=== PATIENT | female | born 1990 ===

== ENCOUNTER 2016-09-16 23:16 | Emergency (ER) | payer OTHER ==
[2016-09-16 23:27] VITALS: BP 138/64; PULSE 84; RESP 16; TEMP 99.1; O2SAT 97
[2016-09-17] MEDS ORDERED: Sodium Chloride 0.9% 1,000 ML IV STA (00:25)
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
[2016-09-17 02:22] LABS: MEAN CELL VOLUME 90.4 fl (81.0-99.0); MEAN CORPUSCULAR HEMOGLOBIN 30.2 pg (27.0-31.0); MEAN CORPUSCULAR HGB CONC 33.4 g/dL (33.0-37.0); RBC 4.64 Mil/uL (3.80-5.20); RED CELL DISTRIBUTION WIDTH 13.6 % (11.5-14.5); WHITE BLOOD COUNT 8.8 K/uL (4.8-10.8)
[2016-09-17 02:42] LABS: ALB/GLOB RATIO 1.4 (1.0-2.1); ALBUMIN 4.5 g/dL (3.5-5.0); ALT/SGPT 36 U/L (9-52); AST/SGOT 27 U/L (14-36); BLOOD UREA NITROGEN 10 mg/dl (7-17); CALCIUM 9.7 mg/dL (8.4-10.2); GFR AFRICAN-AMERICAN > 60; GFR NON-AFRICAN AMERICAN > 60
== END 2016-09-17 03:25 | disposition home or self-care (01) ==
LOC: H.ER 23:16
DX: T20.10XA Burn of first degree of head, face, and neck, unspecified site, initial encounter (principal); X19.XXXA Contact with other heat and hot substances, initial encounter; Y92.89 Other specified places as the place of occurrence of the external cause

== ENCOUNTER 2016-12-06 11:02 | Emergency (ER) | payer OTHER ==
[2016-12-06 11:40] VITALS: BP 118/62; PULSE 83; RESP 16; TEMP 97.1; O2SAT 100
--- NOTE | 2016-12-06 12:35 | ED PDOC ---
HPI: Abdomen Time Seen by Provider: 12/06/16 11:57 Chief Complaint (Nursing): Abdominal Pain Chief Complaint (Provider): Abdominal Pain History Per: Patient Additional Complaint(s): Pt is a 26 yo female, currently 16 wks, reports she was sent to ed for EKG by FINANCIAL BUSINESS ANALYST. Pt states she has been feeling chest tightness/abdominal tightness and headache x1 week. pt in second trimester of . Pt reports symptoms come and go, last ~ 3 hours when present. Currently pt asymptomatic. Dr. Grace Past Medical History Reviewed: Nursing Documentation, Vital Signs Vital Signs: Last Vital Signs Temp 97.1 F L 12/06/16 11:32 Pulse 83 12/06/16 11:32 Resp 16 12/06/16 11:32 BP 118/62 12/06/16 11:32 Pulse Ox 100 12/06/16 12:38 - Medical History PMH: Back Problems, Bronchitis Denies: Chronic Kidney Disease - Surgical History Surgical History: (x1) - Family History Family History: States: No Known Family Hx - Living Arrangements Living Arrangements: With Family - Social History Current smoker - smoking cessation education provided: No Alcohol: None Drugs: Denies - Immunization History Hx Tetanus Toxoid Vaccination: No Hx Influenza Vaccination: No Hx Pneumococcal Vaccination: No - Allergies Allergies/Adverse Reactions: Allergies Allergy/AdvReac Type Severity Reaction Status Date / Time peanuts Allergy Mild RASH Uncoded 09/16/16 23:25 Review of Systems ROS Statement: Except As Marked, All Systems Reviewed And Found Negative Cardiovascular: Positive for: Chest Pain Gastrointestinal: Positive for: Abdominal Pain Physical Exam - Reviewed Nursing Documentation Reviewed: Yes Vital Signs Reviewed: Yes - Physical Exam Appears: Positive for: Well, Non-toxic, No Acute Distress Head Exam: Positive for: ATRAUMATIC, NORMAL INSPECTION, NORMOCEPHALIC Skin: Positive for: Normal Color, Warm, DRY Eye Exam: Positive for: EOMI, Normal appearance, PERRL ENT: Positive for: Normal ENT Inspection Neck: Positive for: Normal, Painless ROM Cardiovascular/Chest: Positive for: Regular Rate, Rhythm Respiratory: Positive for: CNT, Normal Breath Sounds Gastrointestinal/Abdominal: Positive for: Normal Exam, Bowel Sounds, Soft Back: Positive for: Normal Inspection Extremity: Positive for: Normal ROM Neurologic/Psych: Positive for: Alert, Oriented - Laboratory Results Result Diagrams: 12/06/16 13:35 12/06/16 13:35 - ECG O2 Sat by Pulse Oximetry: 100 Medical Decision Making Medical Decision Making: CBC, COMP and UA resulted WNL US IMPRESSION: A single viable intrauterine gestation identified in transverse lie with an average ultrasonic age of 16 weeks 6 days. No placental abruption or previa grossly appreciated and cervical os appears closed and no discrete myometrial mass identified. Consider follow-up ultrasonography to obtain anatomical survey as clinically warranted. Please see discussion above. Pt educated on all results and demonstrated full understanding Pt doing well on re-eval, no complaints. Repeat exam non focal. Pt advised to follow up with Dr. Grace, reports she will do so tomorrow. Disposition - Clinical Impression Clinical Impression: -related symptom in second trimester - Patient ED Disposition Is Patient to be Admitted: No - Disposition Disposition: Routine/Home Disposition Time: 17:24 Condition: STABLE Instructions: at 15 to 18 Weeks (ED) Forms: [employer] (Albanian), [facility] ED School/Work Excuse
[2016-12-06 13:44] LABS: BASO % 0.3 % (0.0-2.0); EOS % 0.1 % (0.0-4.0); LYMPH # 1.8 K/uL (1.0-4.3); LYMPH % 22.7 % (20.0-40.0); MEAN CELL VOLUME 89.9 fl (81.0-99.0); MEAN CORPUSCULAR HEMOGLOBIN 30.4 pg (27.0-31.0); MEAN CORPUSCULAR HGB CONC 33.8 g/dL (33.0-37.0); MEAN PLATELET VOLUME 7.1 fl (7.2-11.7); MONO # 0.5 K/uL (0.0-0.8); MONO % 6.1 % (0.0-10.0); NEUT # 5.6 K/uL (1.8-7.0); NEUT % 70.8 % (50.0-75.0); RED CELL DISTRIBUTION WIDTH 13.4 % (11.5-14.5); WHITE BLOOD COUNT 7.9 K/uL (4.8-10.8)
[2016-12-06 13:56] LABS: RBC URINE 3 /hpf (0-3); URINE BACTERIA RARE (<OCC); URINE BILIRUBIN NEGATIVE (NEGATIVE); URINE BLOOD NEGATIVE (NEGATIVE); URINE COLOR STRAW (YELLOW); URINE GLUCOSE (UA) NEG (Normal); URINE KETONE NEGATIVE (NEGATIVE); URINE LEUKOCYTE ESTERASE TRACE Leu/uL (Negative); URINE PROTEIN NEGATIVE (NEGATIVE); URINE UROBILINOGEN 0.2-1.0 mg/dL (0.2-1.0)
[2016-12-06 14:00] LABS: ALB/GLOB RATIO 1.2 (1.0-2.1); ALKALINE PHOSPHATASE 51 U/L (38-126); ALT/SGPT 46 U/L (9-52); AST/SGOT 28 U/L (14-36); BLOOD UREA NITROGEN 7 mg/dl (7-17); CALCIUM 8.9 mg/dL (8.4-10.2); CARBON DIOXIDE 27 mmol/L (22-30); CHLORIDE 105 mmol/L (98-107); GFR AFRICAN-AMERICAN > 60; GLUCOSE,RANDOM 90 mg/dL (65-105); SODIUM 141 mmol/l (132-148); TOTAL PROTEIN 6.5 G/DL (6.3-8.2)
[2016-12-06 14:01] LABS: WBC URINE 10 /hpf (0-5)
[2016-12-06 14:03] LABS: BILIRUBIN,TOTAL 0.1 mg/dl (0.2-1.3)
--- NOTE | 2016-12-06 16:23 | US ---
PROCEDURE: OB Pelvic Ultrasound HISTORY: 16 weeks, cramping and and chest pain ; last menstrual period is unknown. COMPARISON: None available. FINDINGS: UTERUS: A single viable intrauterine gestation identified in transverse lie with an average ultrasonic age of 16 weeks 6 days and cardiac activity measuring 148 beats per minute. A posterior fundal placenta appears to be developing. No definite placental abruption or previa. The internal cervical os appears close with the cervical length measuring 5 point 0 cm. No discrete myometrial mass identified. Uterus appears anteverted. The following mean biometry was obtained: Biparietal diameter is 3.6 cm corresponds 17 weeks 1 day. Head circumference 13.1 cm corresponds to 16 weeks 5 days. Abdominal circumference 10.9 cm confined to 16 weeks 6 days. Femur length 2.2 cm corresponds to 18 weeks 3 days. HC/AC ratio 1.20 which falls within normal range. Estimated date of delivery 05/17/2013. anatomical survey is markedly limited in this emergent differential side examination. Consider follow-up obstructed ultrasonography for greater detailed anatomical survey. CERVIX: Long and closed. No cervical abnormality seen. RIGHT OVARY: Not clearly identified. No suspicious right adnexal mass. LEFT OVARY: Not clearly identified. No suspicious left adnexal mass. FREE FLUID: None. OTHER FINDINGS: None. IMPRESSION: A single viable intrauterine gestation identified in transverse lie with an average ultrasonic age of 16 weeks 6 days. No placental abruption or previa grossly appreciated and cervical os appears closed and no discrete myometrial mass identified. Consider follow-up ultrasonography to obtain anatomical survey as clinically warranted. Please see discussion above.
--- NOTE | 2016-12-07 08:29 | CARD ---
APPROVED REPORT EKG Measurement Heart [id number] <Conclusion> Normal sinus rhythm Normal ECG
== END 2016-12-06 17:08 | disposition home or self-care (01) ==
LOC: H.ER 11:02
DX: O26.892 Other specified pregnancy related conditions, second trimester (principal); Z3A.16 16 weeks gestation of pregnancy

== ENCOUNTER 2017-04-12 20:28 | Emergency (ER) | payer OTHER ==
[2017-04-12 21:04] VITALS: BMI 33.8
[2017-04-13 03:38] VITALS: BP 124/76; PULSE 97; RESP 16; TEMP 98.2; O2SAT 99
== END 2017-04-12 22:38 | disposition home or self-care (01) ==
LOC: H.EROB2 20:28
DX: O26.93 Pregnancy related conditions, unspecified, third trimester (principal); R10.2 Pelvic and perineal pain; M54.5 Low back pain; Z3A.34 34 weeks gestation of pregnancy; O47.03 False labor before 37 completed weeks of gestation, third trimester

== ENCOUNTER 2017-05-20 01:30 | Inpatient (IN) | payer OTHER ==
[2017-05-20 02:25] VITALS: BMI 36.6
[2017-05-20 03:33] LABS: BASO % 0.2 % (0.0-2.0); EOS % 0.4 % (0.0-4.0); HEMOGLOBIN 11.4 g/dL (12.0-16.0); LYMPH # 1.9 K/uL (1.0-4.3); LYMPH % 24.2 % (20.0-40.0); MEAN CELL VOLUME 88.9 fl (81.0-99.0); MEAN CORPUSCULAR HEMOGLOBIN 30.7 pg (27.0-31.0); MEAN CORPUSCULAR HGB CONC 34.5 g/dL (33.0-37.0); MEAN PLATELET VOLUME 7.7 fl (7.2-11.7); MONO # 0.5 K/uL (0.0-0.8); MONO % 5.8 % (0.0-10.0); NEUT # 5.5 K/uL (1.8-7.0); NEUT % 69.4 % (50.0-75.0); NRBC % 0.2 % (0.0-0.0); RBC 3.73 Mil/uL (3.80-5.20); RED CELL DISTRIBUTION WIDTH 16.5 % (11.5-14.5); WHITE BLOOD COUNT 7.9 K/uL (4.8-10.8)
[2017-05-20] MEDS: Lactated Ringer's 1,000 ML IV SCH ×4 (05:30→17:44)
[2017-05-20] MEDS ORDERED: Nalbuphine 20 mg/ml Inj (1 ml) IVP PRN (05:53)
[2017-05-20] MEDS ORDERED: cefOXitin 2 GM in Dextrose 5% In Water 100 ML IVPB ONE (07:00)
[2017-05-20] MEDS ORDERED: cefOXitin 2 GM in Sodium Chloride 0.9% 100 ML IVPB ONE (10:00)
[2017-05-20] MEDS ORDERED: Oxytocin 30 units/LR 500ML 30 U/500 ML BAG IV ONE (10:16)
[2017-05-20] MEDS ORDERED: ePHEDrine 50 mg/ml Inj ONE ×2 (10:46→14:44)
[2017-05-20] MEDS ORDERED: Morphine 1 mg/ml preservative-free Inj(Duramorph) ONE ×2 (10:46→14:32)
[2017-05-20] MEDS ORDERED: Phenylephrine 10 mg/ml Inj ONE (10:46)
[2017-05-20] MEDS ORDERED: Midazolam 2 MG/2 ML VIAL ONE (15:26)
[2017-05-20] MEDS ORDERED: DiphenhydrAMINE 50 mg/ml Inj IVP PRN ×2 (15:58→18:20)
--- NOTE | 2017-05-20 15:58 | OBADHP ---
Datetime: 05/20/2017 03:10 Admit Comment, IP Provider: 26 y/o F at 39.4 weeks GA, MARIS 05/23/17, c/o uterine CTX thatn began at 6pm and progressively became frequent, every 5 minutes since 1-2 hours ago. Pt explains expu lsing bloody mucus plug at 8am this morning. NO LOF. FM present. All systems reviewed and negative except as above. NKDA Meds: PNV PN Care: w/ Dr Grace at [facility] OB Hx: G 6 [id number]. 2x sAb. 2x elective TOP. 1x . PMHx: plantar fascitis, Sciatica. PSHx: 1 FHx: Maternal aunt with Mental Retardation. SHx: No tobacco, alcohol or rec drugs. A/P 26 y/o F with IUP at 39.4 weeks GA, with CTX and a scheduled repeat for tomorrow. -Admit to L and D -Initiate protocol. -PCP, Dr Grace, made aware. Case discussed with Dr Riley, OB button sewer GTolentino PGY-1 Pelvic Type - PN: Adequate Extremities - PN: Normal Abdomen - PN: Normal Back - PN: Normal Breast - PN: Normal Lungs - PN: Normal Heart - PN: Normal Thyroid - PN: Normal Neurologic - PN: Normal HEENT - PN: Normal General - PN: Normal Presentation-Admit: Vertex FHR - Baseline A Provider: 135 Gestation - Est Wks by US: 39+ IP Hx Assessment: The History has been Reviewed and is Current Vital Signs Provider: Reviewed; Within Normal Limits IP Chief Complaint: Uterine contractions NICHD Variability Prov Fetus A: Moderate 6-25bpm NICHD Accel Fetus A IP Provider: [id number] FHR Category Provider Fetus A: Category I NICHD Decel Fetus A IP Provider: None Dilatation, Provider: 0 Effacement, Provider: thick Station, Provider: high Genitourinary Exam: Normal DTRs - PN: Normal EGA AdmitDate IP: 39.4 IP Adm Impression: Term, intrauterine IP Admit Plan: Admit to unit; Initiate Section protocol
--- NOTE | 2017-05-20 16:04 | OBDS ---
DELIVERY PERSONNEL Delivery Doctor: Ricco Grace MD Architect Naval: Regla Rose RN Anesthesiologist: Gregg Le MD MATERNAL INFORMATION Delivery Anesthesia: Spinal Medications in Delivery: Pitocin 30 mu/500 mL Estimated Blood Loss (ml): 800ml Maternal Complications: None Provider Comments: delivery of live baby boy 9/9 clear fluid tubes and ovaries wnl LABOR SUMMARY EDC: 05/23/2017 00:00 No. Babies in Womb: 1 Attempted: No Labor Anesthesia: None LABOR INFORMATION Reason for Induction: Not Applicable Oxytocin: N/A Group B Beta Strep: Negative Antibiotics # of Doses: 1 Antibiotics Time of Last Dose: 1430 Steroids Given: None Reason Steroids Not Administered: Not Applicable MEMBRANES Membranes Rupture Method: Artificial Rupture of Membranes: 05/20/2017 15:02 Length of Rupture (hrs): 0.02 Amniotic Fluid Color: Clear Amniotic Fluid Amount: Moderate Amniotic Fluid Odor: None STAGES OF LABOR Stage 3 hrs: 0 Stage 3 min: 1 VAGINAL DELIVERY Episiotomy: None Laceration Extension: N/A Laceration Type: None Laceration Repair: Not Applicable CSECTION DELIVERY Primary Indication: Repeat Elective Secondary Indication: N/A CSection Urgency: Elective CSection Incidence: Repeat Labor: No Labor Elective: Elective CSection Incision: Lower Uterine Transverse BABY A INFORMATION Infant Delivery Date/Time: 05/20/2017 15:03 Method of Delivery: Born in Route : No : N/A Forceps: N/A Vacuum Extraction: N/A Shoulder Dystocia : No SHOULDER DYSTOCIA BABY A Delivery Date/Time: 05/20/2017 15:03 PRESENTATION/POSITION BABY A Presentation: Cephalic Cephalic Presentation: Vertex Breech Presentation: N/A PLACENTA INFORMATION BABY A Placenta Delivery Time : 05/20/2017 15:04 Placenta Method of Delivery: Expressed Placenta Status: Delivered SCORES BABY A Heart Rate 1 min: >100 bpm Resp Effort 1 min: Good Cry Reflex Irritability 1 min: Cough or Sneeze or Pulls Away Muscle Tone 1 min: Active Motion Color 1 min: Body [place], Extremities Blue Resuscitation Effort 1 min: Tactile Stimulation SCORE 1 MIN: 9 Heart Rate 5 min: >100 bpm Resp Effort 5 min: Good Cry Reflex Irritability 5 min: Cough or Sneeze or Pulls Away Muscle Tone 5 min: Active Motion Color 5 min: Body [place], Extremities Blue Resuscitation Effort 5 min: N/A SCORE 5 MIN: 9 INFANT INFORMATION BABY A Gestational Age at Delivery: 39.4 Gestational Status: Term Infant Outcome : Liveborn Infant Condition : Stable Sex: Female IDENTIFICATION/MEDS BABY A ID Band Number: [id number] ID Band Location: Left Leg; Left Arm Vitamin K Given : Not Given Erythromycin Given: Not Given WEIGHT/LENGTH BABY A Birthweight (gms): 3365 Infant Weight (lb): 7 Infant Weight (oz): 7 CORD INFORMATION BABY A No. Cord Vessels: 3 Nuchal Cord : N/A Cord Blood Taken: Yes Suction: Mouth; Nose
[2017-05-20] MEDS ORDERED: Bisacodyl 5mg EC Tab PO PRN ×2 (16:18→18:20)
[2017-05-20] MEDS ORDERED: Oxycodone/Acetaminophen 5/325 mg Tab PO PRN ×3 (16:18→18:20)
[2017-05-20] MEDS ORDERED: Lactated Ringer's 1,000 ML IV SCH (18:20)
[2017-05-20] MEDS ORDERED: Simethicone 80 mg Chewtab PO SCH (22:00)
[2017-05-20] MEDS: Simethicone 80 mg Chewtab PO SCH (22:50)
[2017-05-21] MEDS: Simethicone 80 mg Chewtab PO SCH ×4 (05:37→21:09)
[2017-05-21] MEDS: Oxycodone/Acetaminophen 5/325 mg Tab PO PRN ×2 (07:56→14:25)
[2017-05-21 07:57] LABS: BASO % 0.1 % (0.0-2.0); LYMPH # 1.1 K/uL (1.0-4.3); LYMPH % 10.9 % (20.0-40.0); MEAN CELL VOLUME 90.2 fl (81.0-99.0); MEAN CORPUSCULAR HEMOGLOBIN 30.1 pg (27.0-31.0); MEAN CORPUSCULAR HGB CONC 33.3 g/dL (33.0-37.0); MONO # 0.4 K/uL (0.0-0.8); MONO % 4.4 % (0.0-10.0); NEUT # 8.2 K/uL (1.8-7.0); NEUT % 84.6 % (50.0-75.0); RBC 3.67 Mil/uL (3.80-5.20); RED CELL DISTRIBUTION WIDTH 16.7 % (11.5-14.5); WHITE BLOOD COUNT 9.7 K/uL (4.8-10.8)
--- NOTE | 2017-05-21 14:53 | OBPPN ---
Datetime: 05/21/2017 14:50 PP Pain Prov: Within normal limits PP Nausea Prov: Denies PP Flatus Prov: Yes PP BM Prov: No PP Breasts Prov: Normal PP Heart Prov: Normal PP Lungs Prov: Normal PP Abdomen/Uterus Prov: Normal PP Lochia Prov: Normal PP Vulva/Perineum Prov: Normal PP CVA Tenderness Prov: Normal PP Extremities Prov: Normal PP C/S Incision Prov: Normal PP Progress Prov: Normal PP Impression Prov: Normal progression PP Plan Prov: Continue present management PP Progress Note Prov: stable pod1 continue present care IP PP Procedures: None Vital Signs Provider PP: Reviewed; Within Normal Limits
[2017-05-22] MEDS: Simethicone 80 mg Chewtab PO SCH ×4 (05:00→21:57)
--- NOTE | 2017-05-22 11:35 | OBPPN ---
Datetime: 05/22/2017 11:31 PP Pain Prov: Within normal limits PP Pain Prov comment: no SOB, chest or leg pains PP Nausea Prov: Denies PP Flatus Prov: Yes PP Breasts Prov: Normal PP Lungs Prov: Normal PP Abdomen/Uterus Prov: Abnormal PP Lochia Prov: Normal PP Vulva/Perineum Prov: Not Done PP CVA Tenderness Prov: Normal PP Extremities Prov: Normal PP C/S Incision Prov: Normal PP Progress Prov: Normal PP Comments Phys Exam Prov: breast NE, NT, abd soft ND, funjdus fjirm below the umb, incision clean and dry no active bleeding or suppt Ext no calf tenderness. PP Impression Prov: Normal progression PP Plan Prov: Continue present management PP Progress Note Prov: contintue pp care OOB and ambulation IP PP Procedures: None Vital Signs Provider PP: Reviewed
[2017-05-23] MEDS: Simethicone 80 mg Chewtab PO SCH ×2 (03:06→11:47)
--- NOTE | 2017-05-23 14:52 | OBDCSUM ---
Datetime: 05/23/2017 14:47 Discharged to, Provider: Home Follow up at, Provider: Disch Instr Activity: Bedrest; May be up to bathroom; May be up for meals; May Shower Disch Instr Diet: Regular Discharge Instructions, Provider: Routine instructions given Discharge Diagnosis, Provider: Term Delivered Follow up in weeks, Provider: 1 week Disch Referrals: None Disch Activity Restrictions: No exercising; No lifting; No driving; Minimize walking; Minimize stair -climbing; No sexual activity; Nothing in vagina - [place], tampons, douche Discharge Comment, Provider: mo home rto 1week call office if any problems Contraception after Delivery: Undecided Datetime: 04/12/2017 22:30 Discharge Instructions, Provider: Routine instructions given Discharge Diagnosis, Provider: Term Delivered
[2017-05-24 11:39] VITALS: BP 130/88; PULSE 70; RESP 20; TEMP 97.6; O2SAT 96
== END 2017-05-23 16:30 | disposition home or self-care (01) | DRG 766 ==
LOC: H.EROB2 01:30 → H.L&D 02:47 → H.OB/GYN 18:15
PROVIDERS: ADMIT Specialist; ATTEND Specialist
PROC: 10D00Z1 Extraction of Products of Conception, Low, Open Approach (ICD-10-PCS; principal; 2017-05-20)
PROC: 4A1HXCZ Monitoring of Products of Conception, Cardiac Rate, External Approach (ICD-10-PCS; 2017-05-20)
DX: O34.219 Maternal care for unspecified type scar from previous cesarean delivery (principal); Z37.0 Single live birth; N85.8 Other specified noninflammatory disorders of uterus; Z3A.39 39 weeks gestation of pregnancy; Z81.0 Family history of intellectual disabilities